=== PATIENT | male | born 1955 | race African-American/Black ===

== ENCOUNTER 2019-04-17 14:32 | Inpatient (IN) ==
[2019-04-17 15:56] LABS: Basophils % 0.2 % (0.0-0.8); Eosinophils % 0.3 % (0.00-10.9); Hematocrit 32.4 VOL% (42.0-52.0); Hemoglobin 10.5 GM/DL (14.0-18.0); Immature Granulocytes % 0.4 %; Immature Granulocytes Absolute 0.05 #; Lymphocytes # 1.5 10*3/uL (1.4-4.0); Lymphocytes % 10.9 % (21.2-54.2); Mean Corpuscular HGB Conc 32.4 GM/DL (32-36); Mean Corpuscular Volume 74.3 FL (87-102); Mean Platelet Volume 9.8 FL (9.6-12.0); Monocytes % 6.4 % (1.7-12.7); NRBC # 0.02 10*3/uL; Neutrophils % 81.8 % (38.7-73.9); Platelet Count 354 T/CUMM (130-400); Red Blood Count 4.36 MC/CUMM (3.8-5.5); White Blood Count 13.3 T/CUMM (4-12)
[2019-04-17 16:25] LABS: Alanine Aminotransferase 92 U/L (16-61); Albumin 2.8 G/DL (3.4-5.0); Alkaline Phosphatase 112 U/L (45-117); Aspartate Amino Transferase 85 U/L (0-37); Blood Urea Nitrogen 15 MG/DL (7-18); Calcium 9.4 MG/DL (8.5-10.1); Estimated Glom Filtration Rate 117 ML/MIN; Glucose 105 MG/DL (74-106); Osmolality,Calculated 277.5 MOS/KG (273-304); Total Protein 8.7 G/DL (6.4-8.3)
[2019-04-17] MEDS ORDERED: ENOXAPARIN 40 MG/0.4 ML SYRINGE SUBCUT SCH (21:00)
[2019-04-17] MEDS: GABAPENTIN 100 MG CAPSULE PO SCH (21:40)
[2019-04-17] MEDS: ATORVASTATIN 40 MG TABLET PO SCH (21:40)
[2019-04-17] MEDS: PIPERACILLIN/TAZOBACTAM 3,375 MG in SODIUM CHLORIDE 0.9% 100 ML IV SCH (21:40)
[2019-04-18] MEDS: HEPARIN DRIP 25,000 UNITS/500 ML PREMIX IV SCH (00:15)
[2019-04-18] MEDS: VANCOMYCIN INJ 1,000 MG in SODIUM CHLORIDE 0.9% 250 ML IV SCH ×2 (01:45→12:23)
[2019-04-18 05:52] LABS: Basophils % 0.2 % (0.0-0.8); Eosinophils # 0.1 10*3/uL (0.0-0.87); Eosinophils % 0.6 % (0.00-10.9); Hematocrit 26.8 VOL% (42.0-52.0); Hemoglobin 8.9 GM/DL (14.0-18.0); Immature Granulocytes % 0.4 %; Immature Granulocytes Absolute 0.05 #; Lymphocytes # 1.4 10*3/uL (1.4-4.0); Lymphocytes % 11.3 % (21.2-54.2); Mean Corpuscular HGB Conc 33.2 GM/DL (32-36); Mean Corpuscular Volume 73.2 FL (87-102); Mean Platelet Volume 9.5 FL (9.6-12.0); Monocytes % 7.7 % (1.7-12.7); Neutrophils % 79.8 % (38.7-73.9); Platelet Count 292 T/CUMM (130-400); Red Blood Count 3.66 MC/CUMM (3.8-5.5); Red Cell Distribution Width 14.3 % (9.3-17.3); White Blood Count 12.2 T/CUMM (4-12)
[2019-04-18] MEDS: PIPERACILLIN/TAZOBACTAM 3,375 MG in SODIUM CHLORIDE 0.9% 100 ML IV SCH ×2 (06:14→15:14)
[2019-04-18 06:22] LABS: Albumin 2.2 G/DL (3.4-5.0); Bilirubin,Total 0.8 MG/DL (0.2-1.0); Calcium 8.8 MG/DL (8.5-10.1); Risk Ratio 3.97; Thyroid Stimulating Hormone 1.38 uIU/ml (0.358-3.74); Total Protein 6.8 G/DL (6.4-8.3)
[2019-04-18] MEDS: GABAPENTIN 100 MG CAPSULE PO SCH ×3 (10:06→23:17)
[2019-04-18] MEDS: ASPIRIN EC 81 MG TABLET PO SCH (10:07)
[2019-04-18] MEDS ORDERED: HEPARIN 5,000 UNIT/1 ML VIAL IV ONE (20:00)
[2019-04-18] MEDS: ATORVASTATIN 40 MG TABLET PO SCH (23:17)
[2019-04-19] MEDS: HEPARIN DRIP 25,000 UNITS/500 ML PREMIX IV SCH ×2 (00:31→02:01)
[2019-04-19] MEDS: VANCOMYCIN INJ 1,000 MG in SODIUM CHLORIDE 0.9% 250 ML IV SCH ×4 (00:50→23:06)
[2019-04-19 02:25] LABS: Basophils % 0.3 % (0.0-0.8); Eosinophils # 0.2 10*3/uL (0.0-0.87); Eosinophils % 1.2 % (0.00-10.9); Hematocrit 27.5 VOL% (42.0-52.0); Hemoglobin 8.8 GM/DL (14.0-18.0); Immature Granulocytes % 0.8 %; Immature Granulocytes Absolute 0.11 #; Lymphocytes # 1.9 10*3/uL (1.4-4.0); Lymphocytes % 13.3 % (21.2-54.2); Mean Corpuscular Volume 74.7 FL (87-102); Mean Platelet Volume 9.9 FL (9.6-12.0); Monocytes % 10.9 % (1.7-12.7); NRBC # 0.02 10*3/uL; Neutrophils % 73.5 % (38.7-73.9); Platelet Count 234 T/CUMM (130-400); Red Blood Count 3.68 MC/CUMM (3.8-5.5); Red Cell Distribution Width 14.6 % (9.3-17.3); White Blood Count 14.4 T/CUMM (4-12)
[2019-04-19 02:40] LABS: Calcium 8.5 MG/DL (8.5-10.1); Osmolality,Calculated 271.8 MOS/KG (273-304)
[2019-04-19] MEDS: PIPERACILLIN/TAZOBACTAM 3,375 MG in SODIUM CHLORIDE 0.9% 100 ML IV SCH ×3 (02:58→18:51)
[2019-04-19] MEDS: GABAPENTIN 100 MG CAPSULE PO SCH ×3 (08:22→21:37)
[2019-04-19] MEDS: ASPIRIN EC 81 MG TABLET PO SCH (08:22)
[2019-04-19] MEDS: ATORVASTATIN 40 MG TABLET PO SCH (21:37)
[2019-04-20] MEDS: HEPARIN DRIP 25,000 UNITS/500 ML PREMIX IV SCH (00:37)
[2019-04-20] MEDS: PIPERACILLIN/TAZOBACTAM 3,375 MG in SODIUM CHLORIDE 0.9% 100 ML IV SCH ×3 (03:04→18:27)
[2019-04-20] MEDS: VANCOMYCIN INJ 1,000 MG in SODIUM CHLORIDE 0.9% 250 ML IV SCH ×3 (06:20→22:50)
[2019-04-20] MEDS: GABAPENTIN 100 MG CAPSULE PO SCH ×3 (08:53→20:21)
[2019-04-20] MEDS: ASPIRIN EC 81 MG TABLET PO SCH (08:53)
[2019-04-20] MEDS: SODIUM HYPOCHLORITE 0.25% IRRIG 473 ML BOTTLE TOP SCH (10:12)
[2019-04-20 18:40] LABS: INR 1.1; PT Patient Result 11.6 SECS (9.6-12.2); Partial Thromboplastin Time 54.3 SECS (20.8-36.0)
[2019-04-20] MEDS: APIXABAN 5 MG TABLET PO SCH (20:21)
[2019-04-20] MEDS: ATORVASTATIN 40 MG TABLET PO SCH (20:21)
[2019-04-21] MEDS: PIPERACILLIN/TAZOBACTAM 3,375 MG in SODIUM CHLORIDE 0.9% 100 ML IV SCH ×3 (03:19→18:04)
[2019-04-21] MEDS: VANCOMYCIN INJ 1,250 MG in SODIUM CHLORIDE 0.9% 250 ML IV SCH ×3 (06:10→23:42)
[2019-04-21 07:36] LABS: Basophils % 0.3 % (0.0-0.8); Eosinophils # 0.2 10*3/uL (0.0-0.87); Eosinophils % 1.8 % (0.00-10.9); Hematocrit 26.4 VOL% (42.0-52.0); Hemoglobin 8.5 GM/DL (14.0-18.0); Immature Granulocytes % 0.5 %; Immature Granulocytes Absolute 0.05 #; Lymphocytes # 1.4 10*3/uL (1.4-4.0); Lymphocytes % 12.2 % (21.2-54.2); Mean Corpuscular HGB Conc 32.2 GM/DL (32-36); Mean Corpuscular Volume 73.1 FL (87-102); Mean Platelet Volume 9.5 FL (9.6-12.0); Monocytes % 10.3 % (1.7-12.7); Neutrophils % 74.9 % (38.7-73.9); Platelet Count 317 T/CUMM (130-400); Red Blood Count 3.61 MC/CUMM (3.8-5.5); Red Cell Distribution Width 14.2 % (9.3-17.3); White Blood Count 11.1 T/CUMM (4-12)
[2019-04-21] MEDS: ASPIRIN EC 81 MG TABLET PO SCH (11:35)
[2019-04-21] MEDS: GABAPENTIN 100 MG CAPSULE PO SCH ×3 (11:35→20:32)
[2019-04-21] MEDS: APIXABAN 5 MG TABLET PO SCH ×2 (11:35→20:31)
[2019-04-21] MEDS: SODIUM HYPOCHLORITE 0.25% IRRIG 473 ML BOTTLE TOP SCH (11:36)
[2019-04-21] MEDS: ATORVASTATIN 40 MG TABLET PO SCH (20:32)
[2019-04-22] MEDS: PIPERACILLIN/TAZOBACTAM 3,375 MG in SODIUM CHLORIDE 0.9% 100 ML IV SCH ×3 (03:40→18:23)
[2019-04-22] MEDS: VANCOMYCIN INJ 1,250 MG in SODIUM CHLORIDE 0.9% 250 ML IV SCH ×2 (07:30→14:51)
[2019-04-22 07:39] LABS: Basophils % 0.3 % (0.0-0.8); Eosinophils # 0.2 10*3/uL (0.0-0.87); Eosinophils % 1.8 % (0.00-10.9); Hemoglobin 8.7 GM/DL (14.0-18.0); Immature Granulocytes % 0.3 %; Immature Granulocytes Absolute 0.04 #; Lymphocytes # 1.5 10*3/uL (1.4-4.0); Lymphocytes % 12.6 % (21.2-54.2); Mean Corpuscular HGB Conc 32.2 GM/DL (32-36); Mean Corpuscular Volume 73.6 FL (87-102); Mean Platelet Volume 9.3 FL (9.6-12.0); NRBC # 0.02 10*3/uL; Platelet Count 318 T/CUMM (130-400); Red Blood Count 3.67 MC/CUMM (3.8-5.5); Red Cell Distribution Width 14.3 % (9.3-17.3); White Blood Count 11.9 T/CUMM (4-12)
[2019-04-22] MEDS: GABAPENTIN 100 MG CAPSULE PO SCH ×3 (09:00→21:01)
[2019-04-22] MEDS: APIXABAN 5 MG TABLET PO SCH ×2 (09:00→21:02)
[2019-04-22] MEDS: ASPIRIN EC 81 MG TABLET PO SCH (09:01)
[2019-04-22] MEDS: SODIUM HYPOCHLORITE 0.25% IRRIG 473 ML BOTTLE TOP SCH (09:01)
[2019-04-22] MEDS: ATORVASTATIN 40 MG TABLET PO SCH (21:02)
[2019-04-23] MEDS: VANCOMYCIN INJ 1,250 MG in SODIUM CHLORIDE 0.9% 250 ML IV SCH ×2 (00:53→06:37)
[2019-04-23] MEDS: PIPERACILLIN/TAZOBACTAM 3,375 MG in SODIUM CHLORIDE 0.9% 100 ML IV SCH ×2 (05:11→11:19)
[2019-04-23] MEDS: SODIUM HYPOCHLORITE 0.25% IRRIG 473 ML BOTTLE TOP SCH (08:32)
[2019-04-23] MEDS: APIXABAN 5 MG TABLET PO SCH ×2 (08:32→20:10)
[2019-04-23] MEDS: GABAPENTIN 100 MG CAPSULE PO SCH ×3 (08:32→20:10)
[2019-04-23] MEDS: ASPIRIN EC 81 MG TABLET PO SCH (08:35)
[2019-04-23] MEDS: LEVOFLOXACIN 750 MG TABLET PO SCH (13:38)
[2019-04-23] MEDS: ATORVASTATIN 40 MG TABLET PO SCH (20:10)
[2019-04-24] MEDS: GABAPENTIN 100 MG CAPSULE PO SCH ×2 (08:42→15:37)
[2019-04-24] MEDS: LEVOFLOXACIN 750 MG TABLET PO SCH (08:42)
[2019-04-24] MEDS: ASPIRIN EC 81 MG TABLET PO SCH (08:42)
[2019-04-24] MEDS: APIXABAN 5 MG TABLET PO SCH (08:42)
[2019-04-24] MEDS: SODIUM HYPOCHLORITE 0.25% IRRIG 473 ML BOTTLE TOP SCH (08:42)
[2019-04-24 15:43] VITALS: BP 95/52
== END 2019-04-24 17:59 | disposition hospice, home (50) | DRG 65 ==
LOC: EDBD → EDUNIT# → N.ED 14:32 → SUATTDRO 17:46 → N.EDINP 17:46 → N.TELES 19:16 → N.3E 04-19 18:34
PROVIDERS: ADMIT Internal Medicine Nephrology; ATTEND Internal Medicine

== ENCOUNTER 2021-03-02 13:25 | Inpatient (IN) ==
[2021-03-02 18:57] LABS: Basophils # 0.1 10*3/uL (0.0-0.2); Basophils % 0.6 % (0.0-0.8); Eosinophils # 0.2 10*3/uL (0.0-0.87); Hemoglobin 12.6 GM/DL (14.0-18.0); Immature Granulocytes % 0.4 %; Immature Granulocytes Absolute 0.03 #; Lymphocytes # 2.9 10*3/uL (1.4-4.0); Lymphocytes % 34.1 % (21.2-54.2); Mean Corpuscular HGB Conc 32.3 GM/DL (32-36); Mean Corpuscular Volume 70.5 FL (87-102); Mean Platelet Volume 9.9 FL (9.6-12.0); Monocytes % 8.7 % (1.7-12.7); NRBC # 0.07 10*3/uL; Neutrophils % 54.2 % (38.7-73.9); Platelet Count 229 T/CUMM (130-400); Red Blood Count 5.53 MC/CUMM (3.8-5.5); Red Cell Distribution Width 17.1 % (9.3-17.3); White Blood Count 8.4 T/CUMM (4-12)
[2021-03-02 19:11] LABS: Albumin 3.4 G/DL (3.4-5.0); Bilirubin,Total 0.6 MG/DL (0.20-1.00); Calcium 9.1 MG/DL (8.5-10.1); Total Protein 7.5 G/DL (6.4-8.2)
[2021-03-02] MEDS ORDERED: VANCOMYCIN INJ 1,000 MG in SODIUM CHLORIDE 0.9% 250 ML IV STA ×2 (20:10→20:23)
[2021-03-02] MEDS ORDERED: ONDANSETRON 4 MG/2 ML VIAL IV PRN (21:34)
[2021-03-02] MEDS ORDERED: hydrALAZINE 20 MG/1 ML VIAL IV PRN (21:34)
[2021-03-02] MEDS ORDERED: NICOTINE 21 MG/24 HR PATCH TRANSDERM PRN (21:34)
[2021-03-02] MEDS ORDERED: GLUCAGON 1 MG VIAL IM PRN (21:34)
[2021-03-02] MEDS ORDERED: DEXTROSE 50% 25 GM/50 ML VIAL IV PRN (21:34)
[2021-03-02] MEDS ORDERED: INFLUENZA VIRUS VACCINE 0.5 ML SYRINGE IM ONE (23:16)
[2021-03-02] MEDS: PIPERACILLIN/TAZOBACTAM 3,375 MG in SODIUM CHLORIDE 0.9% 100 ML IV SCH (23:47)
[2021-03-03] MEDS ORDERED: ACETAMINOPHEN 325 MG TABLET PO PRN (02:06)
[2021-03-03] MEDS: PIPERACILLIN/TAZOBACTAM 3,375 MG in SODIUM CHLORIDE 0.9% 100 ML IV SCH ×3 (05:40→23:00)
[2021-03-03 06:23] LABS: Basophils % 0.6 % (0.0-0.8); Eosinophils # 0.1 10*3/uL (0.0-0.87); Eosinophils % 2.2 % (0.00-10.9); Hematocrit 38.8 VOL% (42.0-52.0); Hemoglobin 12.8 GM/DL (14.0-18.0); Immature Granulocytes % 0.2 %; Immature Granulocytes Absolute 0.01 #; Lymphocytes # 2.4 10*3/uL (1.4-4.0); Mean Corpuscular Volume 70.9 FL (87-102); Monocytes % 8.3 % (1.7-12.7); NRBC # 0.06 10*3/uL; Neutrophils % 51.7 % (38.7-73.9); Platelet Count 135 T/CUMM (130-400); Red Blood Count 5.47 MC/CUMM (3.8-5.5); Red Cell Distribution Width 16.7 % (9.3-17.3); White Blood Count 6.4 T/CUMM (4-12)
[2021-03-03 06:48] LABS: Calcium 8.8 MG/DL (8.5-10.1); Potassium 3.9 MMOL/L (3.5-5.1)
[2021-03-03] MEDS: PANTOPRAZOLE 40 MG TABLET PO SCH (08:34)
[2021-03-03] MEDS: VANCOMYCIN INJ 1,000 MG in SODIUM CHLORIDE 0.9% 250 ML IV SCH ×2 (11:14→21:40)
[2021-03-04] MEDS: PIPERACILLIN/TAZOBACTAM 3,375 MG in SODIUM CHLORIDE 0.9% 100 ML IV SCH ×3 (05:26→21:19)
[2021-03-04 05:54] LABS: Basophils # 0.1 10*3/uL (0.0-0.2); Basophils % 0.8 % (0.0-0.8); Eosinophils # 0.2 10*3/uL (0.0-0.87); Eosinophils % 3.2 % (0.00-10.9); Hematocrit 38.4 VOL% (42.0-52.0); Hemoglobin 12.4 GM/DL (14.0-18.0); Immature Granulocytes % 0.3 %; Immature Granulocytes Absolute 0.02 #; Lymphocytes # 1.9 10*3/uL (1.4-4.0); Lymphocytes % 29.2 % (21.2-54.2); Mean Corpuscular HGB Conc 32.3 GM/DL (32-36); Mean Corpuscular Volume 71.2 FL (87-102); Mean Platelet Volume 9.9 FL (9.6-12.0); Monocytes % 9.2 % (1.7-12.7); NRBC # 0.02 10*3/uL; Neutrophils % 57.3 % (38.7-73.9); Platelet Count 214 T/CUMM (130-400); Red Blood Count 5.39 MC/CUMM (3.8-5.5); Red Cell Distribution Width 17.2 % (9.3-17.3); White Blood Count 6.6 T/CUMM (4-12)
[2021-03-04 06:14] LABS: Calcium 8.8 MG/DL (8.5-10.1); Osmolality,Calculated 276.5 MOS/KG (273-304); Potassium 4.1 MMOL/L (3.5-5.1)
[2021-03-04] MEDS: VANCOMYCIN INJ 1,000 MG in SODIUM CHLORIDE 0.9% 250 ML IV SCH (09:54)
[2021-03-04] MEDS: PANTOPRAZOLE 40 MG TABLET PO SCH (09:54)
[2021-03-04] MEDS: APIXABAN 5 MG TABLET PO SCH ×2 (13:39→21:19)
[2021-03-04] MEDS: GABAPENTIN 100 MG CAPSULE PO SCH ×2 (16:48→21:19)
[2021-03-04] MEDS: ATORVASTATIN 40 MG TABLET PO SCH (21:19)
[2021-03-05] MEDS: PIPERACILLIN/TAZOBACTAM 3,375 MG in SODIUM CHLORIDE 0.9% 100 ML IV SCH ×3 (05:48→22:08)
[2021-03-05] MEDS: APIXABAN 5 MG TABLET PO SCH ×2 (09:30→20:42)
[2021-03-05] MEDS: PANTOPRAZOLE 40 MG TABLET PO SCH (09:30)
[2021-03-05] MEDS: ASPIRIN EC 81 MG TABLET PO SCH (09:30)
[2021-03-05] MEDS: GABAPENTIN 100 MG CAPSULE PO SCH ×3 (09:31→20:42)
[2021-03-05] MEDS: ATORVASTATIN 40 MG TABLET PO SCH (20:42)
[2021-03-06 06:29] LABS: Basophils # 0.1 10*3/uL (0.0-0.2); Basophils % 0.8 % (0.0-0.8); Eosinophils # 0.3 10*3/uL (0.0-0.87); Eosinophils % 4.4 % (0.00-10.9); Hematocrit 37.9 VOL% (42.0-52.0); Hemoglobin 12.2 GM/DL (14.0-18.0); Immature Granulocytes % 0.3 %; Immature Granulocytes Absolute 0.02 #; Lymphocytes % 31.7 % (21.2-54.2); Mean Corpuscular HGB Conc 32.2 GM/DL (32-36); Mean Corpuscular Volume 70.7 FL (87-102); Monocytes % 11.1 % (1.7-12.7); NRBC # 0.02 10*3/uL; Neutrophils % 51.7 % (38.7-73.9); Platelet Count 223 T/CUMM (130-400); Red Blood Count 5.36 MC/CUMM (3.8-5.5); Red Cell Distribution Width 17.1 % (9.3-17.3); White Blood Count 6.4 T/CUMM (4-12)
[2021-03-06] MEDS: PIPERACILLIN/TAZOBACTAM 3,375 MG in SODIUM CHLORIDE 0.9% 100 ML IV SCH ×3 (06:41→21:46)
[2021-03-06 06:49] LABS: Calcium 8.8 MG/DL (8.5-10.1); Osmolality,Calculated 273.7 MOS/KG (273-304); Potassium 4.1 MMOL/L (3.5-5.1)
[2021-03-06 07:05] LABS: Platelet Estimate Normal; Target Cells 1+
[2021-03-06 07:06] LABS: Anisocytosis 2+; Burr Cells Few
[2021-03-06] MEDS: GABAPENTIN 100 MG CAPSULE PO SCH ×3 (09:44→20:37)
[2021-03-06] MEDS: ASPIRIN EC 81 MG TABLET PO SCH (09:44)
[2021-03-06] MEDS: APIXABAN 5 MG TABLET PO SCH ×2 (09:44→20:37)
[2021-03-06] MEDS: PANTOPRAZOLE 40 MG TABLET PO SCH (09:44)
[2021-03-06] MEDS: ATORVASTATIN 40 MG TABLET PO SCH (20:37)
[2021-03-07 04:17] LABS: Basophils % 0.6 % (0.0-0.8); Eosinophils # 0.3 10*3/uL (0.0-0.87); Eosinophils % 4.3 % (0.00-10.9); Hemoglobin 12.5 GM/DL (14.0-18.0); Immature Granulocytes % 0.3 %; Immature Granulocytes Absolute 0.02 #; Lymphocytes % 29.9 % (21.2-54.2); Mean Corpuscular HGB Conc 32.1 GM/DL (32-36); Mean Corpuscular Volume 70.5 FL (87-102); Mean Platelet Volume 9.9 FL (9.6-12.0); Monocytes % 9.7 % (1.7-12.7); NRBC # 0.03 10*3/uL; Neutrophils % 55.2 % (38.7-73.9); Platelet Count 219 T/CUMM (130-400); Red Blood Count 5.53 MC/CUMM (3.8-5.5); Red Cell Distribution Width 17.3 % (9.3-17.3); White Blood Count 6.7 T/CUMM (4-12)
[2021-03-07 04:35] LABS: Calcium 8.9 MG/DL (8.5-10.1); Osmolality,Calculated 273.7 MOS/KG (273-304); Potassium 4.2 MMOL/L (3.5-5.1)
[2021-03-07] MEDS: PIPERACILLIN/TAZOBACTAM 3,375 MG in SODIUM CHLORIDE 0.9% 100 ML IV SCH ×3 (05:54→22:50)
[2021-03-07] MEDS: PANTOPRAZOLE 40 MG TABLET PO SCH (09:02)
[2021-03-07] MEDS: ASPIRIN EC 81 MG TABLET PO SCH (09:02)
[2021-03-07] MEDS: GABAPENTIN 100 MG CAPSULE PO SCH ×3 (09:02→20:27)
[2021-03-07] MEDS: APIXABAN 5 MG TABLET PO SCH ×2 (09:03→20:27)
[2021-03-07] MEDS: ATORVASTATIN 40 MG TABLET PO SCH (20:27)
[2021-03-08] MEDS: PIPERACILLIN/TAZOBACTAM 3,375 MG in SODIUM CHLORIDE 0.9% 100 ML IV SCH ×3 (06:46→21:57)
[2021-03-08] MEDS: GABAPENTIN 100 MG CAPSULE PO SCH ×3 (09:22→20:43)
[2021-03-08] MEDS: PANTOPRAZOLE 40 MG TABLET PO SCH (09:23)
[2021-03-08] MEDS: APIXABAN 5 MG TABLET PO SCH ×2 (09:23→20:42)
[2021-03-08] MEDS: ASPIRIN EC 81 MG TABLET PO SCH (09:24)
[2021-03-08] MEDS: ATORVASTATIN 40 MG TABLET PO SCH (20:42)
[2021-03-09 05:48] LABS: Basophils % 0.4 % (0.0-0.8); Eosinophils # 0.2 10*3/uL (0.0-0.87); Eosinophils % 2.9 % (0.00-10.9); Hematocrit 37.1 VOL% (42.0-52.0); Hemoglobin 12.2 GM/DL (14.0-18.0); Immature Granulocytes % 0.3 %; Immature Granulocytes Absolute 0.02 #; Lymphocytes # 2.5 10*3/uL (1.4-4.0); Lymphocytes % 35.8 % (21.2-54.2); Mean Corpuscular HGB Conc 32.9 GM/DL (32-36); Mean Corpuscular Volume 70.3 FL (87-102); Monocytes % 7.3 % (1.7-12.7); NRBC # 0.05 10*3/uL; Neutrophils % 53.3 % (38.7-73.9); Platelet Count 197 T/CUMM (130-400); Red Blood Count 5.28 MC/CUMM (3.8-5.5); Red Cell Distribution Width 16.8 % (9.3-17.3); White Blood Count 6.9 T/CUMM (4-12)
[2021-03-09] MEDS: PIPERACILLIN/TAZOBACTAM 3,375 MG in SODIUM CHLORIDE 0.9% 100 ML IV SCH ×2 (05:59→14:25)
[2021-03-09 06:29] LABS: Calcium 8.9 MG/DL (8.5-10.1); Osmolality,Calculated 267.4 MOS/KG (273-304); Potassium 4.4 MMOL/L (3.5-5.1)
[2021-03-09] MEDS: ASPIRIN EC 81 MG TABLET PO SCH (08:24)
[2021-03-09] MEDS: PANTOPRAZOLE 40 MG TABLET PO SCH (08:24)
[2021-03-09] MEDS: GABAPENTIN 100 MG CAPSULE PO SCH ×2 (08:24→14:24)
[2021-03-09] MEDS: APIXABAN 5 MG TABLET PO SCH (08:24)
[2021-03-09 16:37] VITALS: BP 138/61
== END 2021-03-09 17:45 | disposition home or self-care (01) | DRG 603 ==
LOC: N.ED 13:25 → SUATTDRO 21:34 → N.3E 21:34
PROVIDERS: ADMIT Internal Medicine; ATTEND Internal Medicine

== ENCOUNTER 2021-04-08 12:09 | Inpatient (IN) ==
[2021-04-08 13:32] LABS: Basophils % 0.3 % (0.0-0.8); Eosinophils # 0.1 10*3/uL (0.0-0.87); Eosinophils % 1.2 % (0.00-10.9); Hemoglobin 13.6 GM/DL (14.0-18.0); Immature Granulocytes % 0.2 %; Immature Granulocytes Absolute 0.02 #; Lymphocytes # 2.1 10*3/uL (1.4-4.0); Lymphocytes % 23.4 % (21.2-54.2); Mean Corpuscular HGB Conc 32.4 GM/DL (32-36); Mean Corpuscular Volume 70.4 FL (87-102); Mean Platelet Volume 9.9 FL (9.6-12.0); NRBC # 0.04 10*3/uL; Neutrophils % 65.9 % (38.7-73.9); Platelet Count 267 T/CUMM (130-400); Red Blood Count 5.97 MC/CUMM (3.8-5.5); Red Cell Distribution Width 17.9 % (9.3-17.3); White Blood Count 8.9 T/CUMM (4-12)
[2021-04-08 14:07] LABS: Albumin 3.6 G/DL (3.4-5.0); Bilirubin,Total 0.4 MG/DL (0.20-1.00); Calcium 9.3 MG/DL (8.5-10.1); Osmolality,Calculated 267.1 MOS/KG (273-304); Potassium 4.6 MMOL/L (3.5-5.1); Total Protein 7.8 G/DL (6.4-8.2)
[2021-04-08 14:23] LABS: PT Patient Result 11.5 SECS (10.5-12.0); Partial Thromboplastin Time 28.9 SECS (23.8-32.1)
[2021-04-08] MEDS ORDERED: MORPHINE 10 MG/1 ML VIAL IV STA (15:48)
[2021-04-08] MEDS ORDERED: ONDANSETRON 4 MG/2 ML VIAL IV STA (15:49)
[2021-04-08] MEDS ORDERED: ONDANSETRON 4 MG/2 ML VIAL IV PRN (16:26)
[2021-04-08] MEDS ORDERED: hydrALAZINE 20 MG/1 ML VIAL IV PRN (16:26)
[2021-04-08] MEDS ORDERED: ZALEPLON 5 MG CAPSULE PO PRN (16:26)
[2021-04-08] MEDS ORDERED: MORPHINE 2 MG/1 ML SYRINGE ONE (16:38)
[2021-04-08] MEDS ORDERED: SODIUM CHLORIDE 0.9% 1,000 ML IV SCH (17:00)
[2021-04-08] MEDS ORDERED: MORPHINE 2 MG/1 ML SYRINGE IV PRN (17:01)
[2021-04-08] MEDS: VANCOMYCIN INJ 1,000 MG in SODIUM CHLORIDE 0.9% 250 ML IV SCH (18:08)
[2021-04-08] MEDS ORDERED: PNEUMOCOCCAL VACCINE (13 VALENT) 0.5 ML SYRINGE IM ONE (19:07)
[2021-04-08] MEDS ORDERED: INFLUENZA VIRUS VACCINE 0.5 ML SYRINGE IM ONE (19:07)
[2021-04-08] MEDS: PIPERACILLIN/TAZOBACTAM 3,375 MG in SODIUM CHLORIDE 0.9% 100 ML IV SCH (21:07)
[2021-04-09] MEDS: PIPERACILLIN/TAZOBACTAM 3,375 MG in SODIUM CHLORIDE 0.9% 100 ML IV SCH ×2 (05:42→15:08)
[2021-04-09 06:02] LABS: Basophils # 0.1 10*3/uL (0.0-0.2); Basophils % 0.7 % (0.0-0.8); Eosinophils # 0.2 10*3/uL (0.0-0.87); Eosinophils % 2.6 % (0.00-10.9); Hematocrit 41.2 VOL% (42.0-52.0); Hemoglobin 13.1 GM/DL (14.0-18.0); Immature Granulocytes % 0.4 %; Immature Granulocytes Absolute 0.03 #; Lymphocytes # 1.9 10*3/uL (1.4-4.0); Lymphocytes % 26.2 % (21.2-54.2); Mean Corpuscular HGB Conc 31.8 GM/DL (32-36); Mean Corpuscular Volume 70.7 FL (87-102); Mean Platelet Volume 9.5 FL (9.6-12.0); Monocytes % 9.4 % (1.7-12.7); NRBC # 0.03 10*3/uL; Neutrophils % 60.7 % (38.7-73.9); Platelet Count 266 T/CUMM (130-400); Red Blood Count 5.83 MC/CUMM (3.8-5.5); Red Cell Distribution Width 17.7 % (9.3-17.3); White Blood Count 7.3 T/CUMM (4-12)
[2021-04-09 06:35] LABS: Albumin 3.3 G/DL (3.4-5.0); Bilirubin,Total 0.6 MG/DL (0.20-1.00); Calcium 9.2 MG/DL (8.5-10.1); Osmolality,Calculated 275.7 MOS/KG (273-304); Potassium 4.2 MMOL/L (3.5-5.1)
[2021-04-09] MEDS: VANCOMYCIN INJ 1,000 MG in SODIUM CHLORIDE 0.9% 250 ML IV SCH ×2 (09:18→22:48)
[2021-04-09] MEDS ORDERED: NICOTINE 21 MG/24 HR PATCH TRANSDERM PRN (11:57)
[2021-04-09] MEDS: GABAPENTIN 100 MG CAPSULE PO SCH ×2 (15:07→21:02)
[2021-04-09] MEDS: APIXABAN 5 MG TABLET PO SCH (22:38)
[2021-04-09] MEDS: ATORVASTATIN 80 MG TABLET PO SCH (22:45)
[2021-04-10] MEDS: PIPERACILLIN/TAZOBACTAM 3,375 MG in SODIUM CHLORIDE 0.9% 100 ML IV SCH ×3 (00:07→16:57)
[2021-04-10] MEDS ORDERED: ASPIRIN EC 81 MG TABLET PO SCH (09:00)
[2021-04-10] MEDS: NICOTINE 21 MG/24 HR PATCH TRANSDERM SCH (09:01)
[2021-04-10] MEDS: PANTOPRAZOLE 40 MG TABLET PO SCH (10:43)
[2021-04-10] MEDS: GABAPENTIN 100 MG CAPSULE PO SCH ×3 (10:43→20:52)
[2021-04-10] MEDS: VANCOMYCIN INJ 1,000 MG in SODIUM CHLORIDE 0.9% 250 ML IV SCH ×2 (11:00→22:30)
[2021-04-10] MEDS ORDERED: LACTATED RINGERS 1,000 ML IV SCH (11:30)
[2021-04-10] MEDS ORDERED: ROCURONIUM 50 MG/5 ML VIAL IV ONE (12:04)
[2021-04-10] MEDS ORDERED: LIDOCAINE 2% 5 ML VIAL ONE (12:04)
[2021-04-10] MEDS ORDERED: ETOMIDATE 40 MG/20 ML VIAL IV ONE (12:04)
[2021-04-10] MEDS ORDERED: fentaNYL 100 MCG/2 ML VIAL ONE (12:07)
[2021-04-10] MEDS ORDERED: DEXMEDETOMIDINE 200 MCG/2 ML VIAL ONE (12:08)
[2021-04-10] MEDS ORDERED: HEPARIN 5,000 UNIT/1 ML VIAL ONE (12:14)
[2021-04-10] MEDS ORDERED: DESFLURANE 1 UNIT/15 MINUTE INH ONE (12:44)
[2021-04-10] MEDS ORDERED: VANCOMYCIN 1,000 MG VIAL ONE (13:01)
[2021-04-10] MEDS ORDERED: SODIUM CHLORIDE 0.9% 500 ML IV ONE (13:20)
[2021-04-10] MEDS ORDERED: PHENYLEPHRINE 10 MG/1 ML VIAL IV ONE (13:21)
[2021-04-10] MEDS ORDERED: HEPARIN 10,000 UNIT/10 ML VIAL ONE (13:34)
[2021-04-10] MEDS ORDERED: ACETAMINOPHEN INJ 1,000 MG/100 ML VIAL IV ONE (13:44)
[2021-04-10] MEDS ORDERED: propofoL 200 MG/20 ML VIAL IV ONE (15:28)
[2021-04-10] MEDS ORDERED: LACTATED RINGERS 1,000 ML IV ONE (15:32)
[2021-04-10] MEDS ORDERED: MORPHINE 2 MG/1 ML SYRINGE IV PRN (15:58)
[2021-04-10] MEDS: ATORVASTATIN 80 MG TABLET PO SCH (20:52)
[2021-04-11] MEDS: PIPERACILLIN/TAZOBACTAM 3,375 MG in SODIUM CHLORIDE 0.9% 100 ML IV SCH ×3 (02:15→16:40)
[2021-04-11 06:48] LABS: Basophils % 0.2 % (0.0-0.8); Eosinophils # 0.1 10*3/uL (0.0-0.87); Eosinophils % 0.9 % (0.00-10.9); Hematocrit 35.1 VOL% (42.0-52.0); Hemoglobin 11.5 GM/DL (14.0-18.0); Immature Granulocytes % 0.5 %; Immature Granulocytes Absolute 0.06 #; Lymphocytes # 1.3 10*3/uL (1.4-4.0); Lymphocytes % 10.3 % (21.2-54.2); Mean Corpuscular HGB Conc 32.8 GM/DL (32-36); Mean Corpuscular Volume 70.3 FL (87-102); Mean Platelet Volume 9.5 FL (9.6-12.0); Monocytes % 6.7 % (1.7-12.7); Neutrophils % 81.4 % (38.7-73.9); Platelet Count 220 T/CUMM (130-400); Red Blood Count 4.99 MC/CUMM (3.8-5.5); Red Cell Distribution Width 16.3 % (9.3-17.3); White Blood Count 12.7 T/CUMM (4-12)
[2021-04-11 07:08] LABS: Calcium 8.8 MG/DL (8.5-10.1); Potassium 3.9 MMOL/L (3.5-5.1)
[2021-04-11] MEDS: GABAPENTIN 100 MG CAPSULE PO SCH ×3 (11:04→20:36)
[2021-04-11] MEDS: PANTOPRAZOLE 40 MG TABLET PO SCH (11:04)
[2021-04-11] MEDS: NICOTINE 21 MG/24 HR PATCH TRANSDERM SCH (11:05)
[2021-04-11] MEDS: carvediloL 6.25 MG TABLET PO SCH ×2 (11:05→18:06)
[2021-04-11] MEDS: VANCOMYCIN INJ 1,000 MG in SODIUM CHLORIDE 0.9% 250 ML IV SCH ×2 (15:40→23:09)
[2021-04-11] MEDS: ATORVASTATIN 80 MG TABLET PO SCH (20:36)
[2021-04-12] MEDS: PIPERACILLIN/TAZOBACTAM 3,375 MG in SODIUM CHLORIDE 0.9% 100 ML IV SCH ×2 (01:12→09:01)
[2021-04-12 05:24] LABS: Basophils % 0.4 % (0.0-0.8); Eosinophils # 0.2 10*3/uL (0.0-0.87); Eosinophils % 1.8 % (0.00-10.9); Hematocrit 32.6 VOL% (42.0-52.0); Hemoglobin 10.6 GM/DL (14.0-18.0); Immature Granulocytes % 0.4 %; Immature Granulocytes Absolute 0.04 #; Lymphocytes # 1.6 10*3/uL (1.4-4.0); Lymphocytes % 14.8 % (21.2-54.2); Mean Corpuscular HGB Conc 32.5 GM/DL (32-36); Mean Platelet Volume 10.3 FL (9.6-12.0); Monocytes % 9.5 % (1.7-12.7); Neutrophils % 73.1 % (38.7-73.9); Platelet Count 198 T/CUMM (130-400); Red Blood Count 4.59 MC/CUMM (3.8-5.5); Red Cell Distribution Width 15.6 % (9.3-17.3); White Blood Count 10.6 T/CUMM (4-12)
[2021-04-12 05:40] LABS: Calcium 8.8 MG/DL (8.5-10.1); Osmolality,Calculated 270.1 MOS/KG (273-304); Potassium 3.8 MMOL/L (3.5-5.1)
[2021-04-12] MEDS: carvediloL 6.25 MG TABLET PO SCH ×2 (08:58→17:14)
[2021-04-12] MEDS: GABAPENTIN 100 MG CAPSULE PO SCH ×3 (09:01→20:19)
[2021-04-12] MEDS: NICOTINE 21 MG/24 HR PATCH TRANSDERM SCH (09:01)
[2021-04-12] MEDS: PANTOPRAZOLE 40 MG TABLET PO SCH (09:01)
[2021-04-12] MEDS: CIPROFLOXACIN 500 MG TABLET PO SCH ×2 (11:04→20:19)
[2021-04-12] MEDS: ATORVASTATIN 80 MG TABLET PO SCH (20:19)
[2021-04-12] MEDS: APIXABAN 5 MG TABLET PO SCH (20:19)
[2021-04-13 06:06] LABS: Basophils % 0.4 % (0.0-0.8); Eosinophils # 0.2 10*3/uL (0.0-0.87); Eosinophils % 2.7 % (0.00-10.9); Hematocrit 36.4 VOL% (42.0-52.0); Hemoglobin 11.7 GM/DL (14.0-18.0); Immature Granulocytes % 0.4 %; Immature Granulocytes Absolute 0.04 #; Lymphocytes # 1.5 10*3/uL (1.4-4.0); Lymphocytes % 16.5 % (21.2-54.2); Mean Corpuscular HGB Conc 32.1 GM/DL (32-36); Mean Corpuscular Volume 72.5 FL (87-102); Monocytes % 9.5 % (1.7-12.7); NRBC # 0.02 10*3/uL; Neutrophils % 70.5 % (38.7-73.9); Platelet Count 166 T/CUMM (130-400); Red Blood Count 5.02 MC/CUMM (3.8-5.5); Red Cell Distribution Width 16.2 % (9.3-17.3); White Blood Count 8.9 T/CUMM (4-12)
[2021-04-13 06:32] LABS: Calcium 8.6 MG/DL (8.5-10.1); Osmolality,Calculated 263.5 MOS/KG (273-304); Potassium 4.2 MMOL/L (3.5-5.1)
[2021-04-13] MEDS: APIXABAN 5 MG TABLET PO SCH ×2 (08:42→20:50)
[2021-04-13] MEDS: CIPROFLOXACIN 500 MG TABLET PO SCH ×2 (08:42→20:50)
[2021-04-13] MEDS: carvediloL 6.25 MG TABLET PO SCH ×2 (08:42→16:00)
[2021-04-13] MEDS: GABAPENTIN 100 MG CAPSULE PO SCH ×3 (08:42→20:50)
[2021-04-13] MEDS: PANTOPRAZOLE 40 MG TABLET PO SCH (08:42)
[2021-04-13] MEDS: NICOTINE 21 MG/24 HR PATCH TRANSDERM SCH (11:00)
[2021-04-13] MEDS: ATORVASTATIN 80 MG TABLET PO SCH (20:50)
[2021-04-14 05:19] LABS: Basophils % 0.2 % (0.0-0.8); Eosinophils # 0.2 10*3/uL (0.0-0.87); Eosinophils % 2.5 % (0.00-10.9); Hematocrit 35.5 VOL% (42.0-52.0); Hemoglobin 11.3 GM/DL (14.0-18.0); Immature Granulocytes % 0.4 %; Immature Granulocytes Absolute 0.03 #; Lymphocytes # 1.4 10*3/uL (1.4-4.0); Lymphocytes % 16.2 % (21.2-54.2); Mean Corpuscular HGB Conc 31.8 GM/DL (32-36); Mean Corpuscular Volume 70.7 FL (87-102); Mean Platelet Volume 9.7 FL (9.6-12.0); Monocytes % 10.2 % (1.7-12.7); Neutrophils % 70.5 % (38.7-73.9); Platelet Count 201 T/CUMM (130-400); Red Blood Count 5.02 MC/CUMM (3.8-5.5); Red Cell Distribution Width 15.7 % (9.3-17.3); White Blood Count 8.5 T/CUMM (4-12)
[2021-04-14 05:49] LABS: Calcium 8.8 MG/DL (8.5-10.1); Osmolality,Calculated 266.4 MOS/KG (273-304); Potassium 3.9 MMOL/L (3.5-5.1)
[2021-04-14] MEDS: carvediloL 6.25 MG TABLET PO SCH ×2 (10:48→17:22)
[2021-04-14] MEDS: APIXABAN 5 MG TABLET PO SCH ×2 (10:48→21:15)
[2021-04-14] MEDS: PANTOPRAZOLE 40 MG TABLET PO SCH (10:48)
[2021-04-14] MEDS: NICOTINE 21 MG/24 HR PATCH TRANSDERM SCH (10:48)
[2021-04-14] MEDS: CIPROFLOXACIN 500 MG TABLET PO SCH ×2 (10:48→21:14)
[2021-04-14] MEDS: GABAPENTIN 100 MG CAPSULE PO SCH ×3 (10:48→21:14)
[2021-04-14] MEDS: ATORVASTATIN 80 MG TABLET PO SCH (21:15)
[2021-04-15 05:08] LABS: Basophils # 0.1 10*3/uL (0.0-0.2); Basophils % 0.5 % (0.0-0.8); Eosinophils # 0.1 10*3/uL (0.0-0.87); Eosinophils % 1.4 % (0.00-10.9); Hematocrit 35.1 VOL% (42.0-52.0); Hemoglobin 11.4 GM/DL (14.0-18.0); Immature Granulocytes % 0.3 %; Immature Granulocytes Absolute 0.03 #; Lymphocytes # 1.9 10*3/uL (1.4-4.0); Lymphocytes % 19.2 % (21.2-54.2); Mean Corpuscular HGB Conc 32.5 GM/DL (32-36); Mean Corpuscular Volume 69.5 FL (87-102); Mean Platelet Volume 9.3 FL (9.6-12.0); Monocytes % 9.9 % (1.7-12.7); Neutrophils % 68.7 % (38.7-73.9); Platelet Count 210 T/CUMM (130-400); Red Blood Count 5.05 MC/CUMM (3.8-5.5); Red Cell Distribution Width 15.5 % (9.3-17.3); White Blood Count 9.9 T/CUMM (4-12)
[2021-04-15 05:31] LABS: Eosinophils 2 % (0-10); Lymphocytes 16 % (20-55); Microcytosis Slight; Platelet Estimate Normal; Segmented Neutrophils 71 % (50-85); Total Cells Counted 100
[2021-04-15 05:48] LABS: Calcium 8.7 MG/DL (8.5-10.1); Osmolality,Calculated 269.2 MOS/KG (273-304); Potassium 3.9 MMOL/L (3.5-5.1)
[2021-04-15] MEDS: carvediloL 6.25 MG TABLET PO SCH (09:34)
[2021-04-15] MEDS: CIPROFLOXACIN 500 MG TABLET PO SCH (09:34)
[2021-04-15] MEDS: PANTOPRAZOLE 40 MG TABLET PO SCH (09:34)
[2021-04-15] MEDS: NICOTINE 21 MG/24 HR PATCH TRANSDERM SCH (09:34)
[2021-04-15] MEDS: GABAPENTIN 100 MG CAPSULE PO SCH ×2 (09:34→16:19)
[2021-04-15] MEDS: APIXABAN 5 MG TABLET PO SCH (09:40)
[2021-04-15] MEDS ORDERED: MAGNESIUM HYDROXIDE SUSP 30 ML UDCUP PO ONE (11:50)
[2021-04-15] MEDS ORDERED: POLYETHYLENE GLYCOL POWDER 17 GM PACK PO ONE (11:50)
[2021-04-15 11:57] VITALS: BP 145/86
== END 2021-04-15 15:30 | disposition swing bed (61) | DRG 253 ==
LOC: EDBD → EDUNIT# → N.ED 12:09 → SUATTDRO 16:26 → N.EDINP 16:26 → N.2E 17:27 → N.3E 04-12 17:22
PROVIDERS: ADMIT Internal Medicine; ATTEND Internal Medicine Geriatric Medicine

== ENCOUNTER 2021-05-07 08:42 | Inpatient (IN) ==
[2021-05-07] MEDS ORDERED: DIAZEPAM 5 MG TABLET PO ONE ×2 (09:13→09:14)
[2021-05-07] MEDS ORDERED: LACTATED RINGERS 1,000 ML IV SCH ×2 (09:30→10:00)
[2021-05-07] MEDS ORDERED: VANCOMYCIN INJ 1,000 MG in SODIUM CHLORIDE 0.9% 250 ML IV ONE (09:51)
[2021-05-07] MEDS ORDERED: MIDAZOLAM 2 MG/2 ML VIAL ONE (10:36)
[2021-05-07] MEDS ORDERED: DEXMEDETOMIDINE 200 MCG/2 ML VIAL ONE (10:36)
[2021-05-07] MEDS ORDERED: fentaNYL 100 MCG/2 ML VIAL ONE (10:36)
[2021-05-07] MEDS ORDERED: ETOMIDATE 40 MG/20 ML VIAL IV ONE (10:36)
[2021-05-07] MEDS ORDERED: LIDOCAINE 2% 5 ML VIAL ONE ×2 (10:36→10:40)
[2021-05-07] MEDS ORDERED: ONDANSETRON 4 MG/2 ML VIAL ONE (10:36)
[2021-05-07] MEDS ORDERED: ROPIVACAINE 0.5% 30 ML VIAL ONE (10:41)
[2021-05-07] MEDS ORDERED: DEXAMETHASONE 4 MG/1 ML VIAL ONE (10:41)
[2021-05-07] MEDS ORDERED: ePHEDrine 50 MG/ML VIAL ONE (11:39)
[2021-05-07] MEDS ORDERED: PHENYLEPHRINE 1 MG/10 ML SYRINGE IV ONE ×2 (11:39→12:15)
[2021-05-07] MEDS ORDERED: SEVOFLURANE 1 UNIT/15 MINUTE INH ONE (12:15)
[2021-05-07] MEDS ORDERED: HYDROmorphone 2 MG/1 ML VIAL IV PRN ×2 (12:20→12:28)
[2021-05-07] MEDS ORDERED: KETOROLAC 10 MG TABLET PO PRN (12:20)
[2021-05-07] MEDS ORDERED: PROMETHAZINE INJ 25 MG in SODIUM CHLORIDE 0.9% 50 ML IV PRN (12:28)
[2021-05-07] MEDS ORDERED: ONDANSETRON 4 MG/2 ML VIAL IV PRN (12:28)
[2021-05-07] MEDS ORDERED: MEPERIDINE 25 MG/1 ML VIAL IV PRN (12:28)
[2021-05-07] MEDS ORDERED: diphenhydrAMINE 50 MG/1 ML VIAL IV PRN (12:28)
[2021-05-07] MEDS: LACTATED RINGERS 1,000 ML IV SCH (12:29)
[2021-05-07] MEDS ORDERED: INFLUENZA VIRUS VACCINE 0.5 ML SYRINGE IM ONE (14:08)
[2021-05-07 14:22] LABS: Hematocrit 25.6 VOL% (42.0-52.0); Hemoglobin 8.3 GM/DL (14.0-18.0)
[2021-05-08] MEDS: LACTATED RINGERS 1,000 ML IV SCH ×2 (01:40→09:28)
[2021-05-08 06:05] LABS: Basophils % 0.1 % (0.0-0.8); Hematocrit 24.2 VOL% (42.0-52.0); Immature Granulocytes % 0.8 %; Immature Granulocytes Absolute 0.16 #; Lymphocytes # 1.5 10*3/uL (1.4-4.0); Lymphocytes % 8.1 % (21.2-54.2); Mean Corpuscular HGB Conc 33.1 GM/DL (32-36); Mean Corpuscular Volume 68.4 FL (87-102); Mean Platelet Volume 9.9 FL (9.6-12.0); Monocytes % 8.1 % (1.7-12.7); NRBC # 0.08 10*3/uL; Neutrophils % 82.9 % (38.7-73.9); Platelet Count 341 T/CUMM (130-400); Red Blood Count 3.54 MC/CUMM (3.8-5.5); Red Cell Distribution Width 14.9 % (9.3-17.3); White Blood Count 19.1 T/CUMM (4-12)
[2021-05-08] MEDS: ENOXAPARIN 40 MG/0.4 ML SYRINGE SUBCUT SCH (06:06)
[2021-05-08 06:30] LABS: Calcium 8.7 MG/DL (8.5-10.1); Osmolality,Calculated 275.8 MOS/KG (273-304)
[2021-05-08] MEDS: PANTOPRAZOLE 40 MG TABLET PO SCH (09:29)
[2021-05-08] MEDS: HYDROmorphone 2 MG/1 ML VIAL IV PRN (10:37)
[2021-05-08] MEDS: MULTIVITAMIN (INTRINSIC) CAPSULE PO SCH (21:17)
[2021-05-09] MEDS: ENOXAPARIN 40 MG/0.4 ML SYRINGE SUBCUT SCH (05:43)
[2021-05-09] MEDS: PANTOPRAZOLE 40 MG TABLET PO SCH (09:22)
[2021-05-09] MEDS: MULTIVITAMIN (INTRINSIC) CAPSULE PO SCH ×2 (09:22→20:49)
[2021-05-09] MEDS: ONDANSETRON 4 MG/2 ML VIAL IV PRN (23:13)
[2021-05-10] MEDS: ENOXAPARIN 40 MG/0.4 ML SYRINGE SUBCUT SCH (06:59)
[2021-05-10] MEDS: MULTIVITAMIN (INTRINSIC) CAPSULE PO SCH ×2 (09:00→21:32)
[2021-05-10] MEDS: PANTOPRAZOLE 40 MG TABLET PO SCH (09:00)
[2021-05-10] MEDS: ONDANSETRON 4 MG/2 ML VIAL IV PRN (23:27)
[2021-05-11] MEDS: ENOXAPARIN 40 MG/0.4 ML SYRINGE SUBCUT SCH (06:17)
[2021-05-11 06:43] LABS: Basophils % 0.1 % (0.0-0.8); Eosinophils % 0.2 % (0.00-10.9); Hematocrit 27.9 VOL% (42.0-52.0); Hemoglobin 9.3 GM/DL (14.0-18.0); Immature Granulocytes Absolute 0.18 #; Lymphocytes # 1.8 10*3/uL (1.4-4.0); Lymphocytes % 9.9 % (21.2-54.2); Mean Corpuscular HGB Conc 33.3 GM/DL (32-36); Mean Corpuscular Volume 67.6 FL (87-102); Mean Platelet Volume 9.2 FL (9.6-12.0); NRBC # 0.02 10*3/uL; Neutrophils % 81.8 % (38.7-73.9); Platelet Count 431 T/CUMM (130-400); Red Blood Count 4.13 MC/CUMM (3.8-5.5); Red Cell Distribution Width 14.8 % (9.3-17.3); White Blood Count 18.3 T/CUMM (4-12)
[2021-05-11] MEDS: PANTOPRAZOLE 40 MG TABLET PO SCH (10:24)
[2021-05-11] MEDS: MULTIVITAMIN (INTRINSIC) CAPSULE PO SCH ×2 (10:24→20:52)
[2021-05-11] MEDS: HYDROmorphone 2 MG/1 ML VIAL IV PRN (16:37)
[2021-05-12] MEDS: ENOXAPARIN 40 MG/0.4 ML SYRINGE SUBCUT SCH (06:29)
[2021-05-12] MEDS: MULTIVITAMIN (INTRINSIC) CAPSULE PO SCH ×2 (09:13→20:58)
[2021-05-12] MEDS: PANTOPRAZOLE 40 MG TABLET PO SCH (09:13)
[2021-05-13] MEDS: ENOXAPARIN 40 MG/0.4 ML SYRINGE SUBCUT SCH (05:38)
[2021-05-13] MEDS: MULTIVITAMIN (INTRINSIC) CAPSULE PO SCH ×2 (09:29→20:16)
[2021-05-13] MEDS: PANTOPRAZOLE 40 MG TABLET PO SCH (09:29)
[2021-05-14] MEDS: ENOXAPARIN 40 MG/0.4 ML SYRINGE SUBCUT SCH (05:59)
[2021-05-14] MEDS: MULTIVITAMIN (INTRINSIC) CAPSULE PO SCH ×2 (09:51→20:19)
[2021-05-14] MEDS: PANTOPRAZOLE 40 MG TABLET PO SCH (09:51)
[2021-05-15] MEDS: ENOXAPARIN 40 MG/0.4 ML SYRINGE SUBCUT SCH (05:43)
[2021-05-15] MEDS: MULTIVITAMIN (INTRINSIC) CAPSULE PO SCH ×2 (10:25→20:30)
[2021-05-15] MEDS: PANTOPRAZOLE 40 MG TABLET PO SCH (10:26)
[2021-05-16] MEDS: ENOXAPARIN 40 MG/0.4 ML SYRINGE SUBCUT SCH (06:40)
[2021-05-16] MEDS: PANTOPRAZOLE 40 MG TABLET PO SCH (10:09)
[2021-05-16] MEDS: MULTIVITAMIN (INTRINSIC) CAPSULE PO SCH ×2 (10:09→20:03)
[2021-05-16] MEDS ORDERED: MAGNESIUM CITRATE 300 ML BOTTLE PO ONE ×2 (10:52→15:00)
[2021-05-17] MEDS: ENOXAPARIN 40 MG/0.4 ML SYRINGE SUBCUT SCH (06:45)
[2021-05-17] MEDS: MULTIVITAMIN (INTRINSIC) CAPSULE PO SCH ×2 (08:20→20:50)
[2021-05-17] MEDS: PANTOPRAZOLE 40 MG TABLET PO SCH (08:20)
[2021-05-18] MEDS: ENOXAPARIN 40 MG/0.4 ML SYRINGE SUBCUT SCH (05:58)
[2021-05-18] MEDS: MULTIVITAMIN (INTRINSIC) CAPSULE PO SCH (09:06)
[2021-05-18] MEDS: PANTOPRAZOLE 40 MG TABLET PO SCH (09:06)
[2021-05-18 16:16] VITALS: BP 111/66
== END 2021-05-18 16:15 | disposition swing bed (61) | DRG 241 ==
LOC: N.OR 08:42 → N.SDSINP 08:44 → EDSTATUS 11:30 → N.SDSINP 12:20 → N.3E 13:58
PROVIDERS: ADMIT Surgery; ATTEND Surgery